=== PATIENT | male | born 1985 | race African-American/Black ===

== ENCOUNTER 2021-04-29 01:07 | Emergency (ER) | payer OTHER ==
[~2021-04-29] VITALS: Ht 175.3 cm; Wt 68.0 kg
--- NOTE | 2021-04-29 03:10 | NUR ---
PRESENTED TO THE ER REQUESTING PSYCHIATRIC RESOURCES FOR SI. PATIENT ALERT AND ORIENTED X3. AMBULATORY WITH NON LABORED BREATHING.
[2021-04-29 03:28] LABS: BILIRUBIN,URINE NEGATIVE (NEGATIVE); COLOR,URINE YELLOW (YELLOW); LEUKOCYTE ESTERASE ,URINE NEGATIVE (NEGATIVE); NITRITE, URINE NEGATIVE (NEGATIVE); PH,URINE 5.5 (5.0-8.0); PROTEIN,URINE NEGATIVE (NEGATIVE); UGLUCOSE NEGATIVE (NEGATIVE); UROBILINOGEN,URINE 0.2 EU/dL (0.2)
--- NOTE | 2021-04-29 03:30 | NUR ---
BLOOD COLLECTED AND SENT TO LAB
[2021-04-29 03:31] LABS: BASOPHILS # (AUTO) 0.1 K/uL (0.0-0.2); BASOPHILS % (AUTO) 0.8 % (0.0-2.0); EOSINOPHILS % (AUTO) 1.7 % (0.0-6.0); HEMATOCRIT 42 % (39-51); HEMOGLOBIN 14.3 g/dL (13.5-17.5); LYMPHOCYTES # (AUTO) 1.5 K/uL (0.8-4.8); MEAN CORPUSCULAR HGB CONC 34 g/dl (31.0-36.0); MEAN CORPUSCULAR VOLUME 95 fL (80-96); MONOCYTES # (AUTO) 0.4 K/uL (0.1-1.30); MONOCYTES % (AUTO) 5.4 % (2.0-12.0); NEUTROPHILS % (AUTO) 71.1 % (43.0-81.0); PLATELET COUNT (AUTO) 320 K/uL (150-450); RED BLOOD CELL COUNT(AUTO) 4.43 MIL/uL (4.5-6.0)
--- NOTE | 2021-04-29 03:35 | NUR ---
URINE COLLECTED AND SENT TO LAB
--- NOTE | 2021-04-29 03:36 | NUR ---
COVID SWAB DONE AND SENT TO LAB
[2021-04-29 03:46] LABS: ALBUMIN 4.2 g/dL (3.4-5.0); BILIRUBIN,DIRECT 0.2 mg/dL (0.0-0.2); BILIRUBIN,TOTAL 0.6 mg/dL (0.2-1.0); CALCIUM, SERUM 8.6 mg/dL (8.5-10.1); CREATININE 0.8 mg/dL (0.6-1.3); POTASSIUM 3.5 mmol/L (3.5-5.1)
[2021-04-29 06:00] VITALS: BP 126/99
--- NOTE | 2021-04-29 12:26 | NUR ---
CALL FROM TANNER,ACCEPTED AT [facility] UNDER DR DELGADO,UNIT 2,REPORT TO [phone]
--- NOTE | 2021-04-29 12:31 | NUR ---
REPORT GIVEN TO AIMEE FOR MICHELLE
--- NOTE | 2021-04-29 13:10 | NUR ---
TRANSPORTED TO [facility] IN STABLE CONDITION.
== END 2021-04-29 13:13 ==
LOC: ER 01:10
DX: R45.851 Suicidal ideations (principal); F12.90 Cannabis use, unspecified, uncomplicated; Z20.822 Contact with and (suspected) exposure to COVID-19; I10 Essential (primary) hypertension; F17.200 Nicotine dependence, unspecified, uncomplicated
CPT/HCPCS: 36415; 80048; 80076; 80143; 80307; 80320 ×2; 81003; 85025; 87426; 99285; C9803; G0480

== ENCOUNTER 2021-05-19 22:57 | Emergency (ER) | payer OTHER ==
[~2021-05-19] VITALS: Ht 175.3 cm; Wt 68.0 kg
[2021-05-19 23:18] VITALS: BP 125/94
--- NOTE | 2021-05-20 00:09 | NUR ---
COVID SWAB SENT TO LAB
--- NOTE | 2021-05-20 00:11 | NUR ---
Patient discharged to home in stable condition. Written and verbal after care instructions given. Patient verbalizes understanding of instruction.
== END 2021-05-20 00:12 | disposition home or self-care (01) ==
LOC: ER 22:57
DX: R51.9 Headache, unspecified (principal); J34.89 Other specified disorders of nose and nasal sinuses; Z20.822 Contact with and (suspected) exposure to COVID-19; I10 Essential (primary) hypertension; Z88.2 Allergy status to sulfonamides
CPT/HCPCS: 87426; 99283; C9803

== ENCOUNTER 2022-02-04 02:54 | Emergency (ER) | payer OTHER ==
[~2022-02-04] VITALS: Ht 175.3 cm; Wt 75.7 kg
--- NOTE | 2022-02-04 03:15 | NUR ---
PT 5150 HOLD PLACED BY [employer] FOR DTS; ATTEMPTED SUICED BY OD ON MEDS & ALCOHOL
--- NOTE | 2022-02-04 03:21 | NUR ---
Called Poison control. Was told to watch patient for 4 hrs Monitor vitals
--- NOTE | 2022-02-04 03:25 | NUR ---
DR. DONALD HERNANDEZ AT PT'S BEDSIDE
--- NOTE | 2022-02-04 03:27 | NUR ---
URINE AND COVID ANTIGEN SWAB COLLECTED AND SENT TO LAB
--- NOTE | 2022-02-04 03:48 | NUR ---
HOUSE FURNISHINGS SUPERVISOR AT PT'S BEDSIDE
[2022-02-04 04:11] LABS: BILIRUBIN,URINE NEGATIVE (NEGATIVE); COLOR,URINE YELLOW (YELLOW); LEUKOCYTE ESTERASE ,URINE NEGATIVE (NEGATIVE); NITRITE, URINE NEGATIVE (NEGATIVE); PROTEIN,URINE NEGATIVE (NEGATIVE); UGLUCOSE NEGATIVE (NEGATIVE); UROBILINOGEN,URINE 0.2 EU/dL (0.2)
[2022-02-04 04:13] LABS: CALCIUM, SERUM 8.4 mg/dL (8.5-10.1); POTASSIUM 3.6 mmol/L (3.5-5.1)
[2022-02-04 04:15] LABS: BASOPHILS % (AUTO) 0.3 % (0.0-2.0); HEMATOCRIT 41 % (39-51); HEMOGLOBIN 13.7 g/dL (13.5-17.5); LYMPHOCYTES # (AUTO) 1.4 K/uL (0.8-4.8); LYMPHOCYTES % (AUTO) 17.2 % (20.0-44.0); MEAN CORPUSCULAR HGB CONC 34 g/dl (31.0-36.0); MEAN CORPUSCULAR VOLUME 93 fL (80-96); MONOCYTES % (AUTO) 12.2 % (2.0-12.0); NEUTROPHILS # (AUTO) 5.1 K/uL (1.8-8.9); NEUTROPHILS % (AUTO) 64.3 % (43.0-81.0); PLATELET COUNT (AUTO) 323 K/uL (150-450); RED BLOOD CELL COUNT(AUTO) 4.36 MIL/uL (4.5-6.0)
[2022-02-04 04:19] LABS: ALBUMIN 3.4 g/dL (3.4-5.0); BILIRUBIN,DIRECT 0.1 mg/dL (0.0-0.2); BILIRUBIN,TOTAL 0.2 mg/dL (0.2-1.0); TOTAL PROTEIN, SERUM 6.7 g/dL (6.4-8.2)
--- NOTE | 2022-02-04 04:23 | NUR ---
Patient is resting comfortably in bed with eyes closed. VSS
--- NOTE | 2022-02-04 09:45 | NUR ---
able to be awakened, verbally responsive, not in acute distress. sitter by bedside.
--- NOTE | 2022-02-04 11:17 | NUR ---
PSYCH CLINICIAN NOTIFIED [phone] ART.
--- NOTE | 2022-02-04 12:00 | NUR ---
SS ASSESSMENT: SS consult requested for overdose. The pt. is a 37 year old Black male who is currently on a 5150 hold for DTS by [employer] after overdosing on "2 dozen pills of Klonopin and alcohol" per hold. SW met with pt. at bedside. The pt. is alert & oriented x 4 and makes good eye contact. Pt. has glasses. The pt. appears well groomed, with depressed mood & flat affect. The pt has fair insight & poor judgement. The pt. denies HI and denies hallucinations. However, he states that he does not have hallucinations because, " I really do see demons". SW asked pt. if he currently sees demons or hears voices and pt. stated "no". The pt. states he is having constant and ongoing suicidal ideation. Pt. refused to disclose current plan. Per pt. he has had many failed suicide attempts in the past. Pt. stated suicidal thoughts began at the age of 12. SW explored what triggered this suicide attempt. Pt. stated it is his birthday today and refused to provide additional details. Pt. stated his last sucide attempt was on March 2021 "because [facility] program I was in made me lose everything". Pt. states he has no friends of family that he considers a support system. Pt. stated he has been experiencing homelessness "for some time". SW explored any mental diagnosis he has received and pt. refused to disclose. Pt. stated he was only on Klonopin meds for his mental health. Pt. states he does not get treated by psychiatrist because he states, "they don't seem to help me". Plan: KENDRICK will fax clinicals to psychistric hospitals for placement. KENDRICK notified transition assistant, Art & CRN, Anushka. KENDRICK provided pt. with the following addiction and mental helth resources: ADDICTION RESOURCES For Drugs and Alcohol [facility] sober living Referrals For Rehabilitation once sober Address:[address] [place] [address] [facility] [address] [place] [address] Detox/residential [facility] Substance Abuse Helpline ([facility]) Outpatient, residential treatment, recovery support for youth/adults [facility] www.actionfaparkview whitley hospitalounsPowerit Solutions [facility] Teen programs for drug/alcohol education and support Oswaldo Wilson [place]. Program for adults, sliding scale provides support and education [facility] www.ViablewareIdylisation.org [place]; Detox/residential treatment programs; transition to sober living [facility] www.cri-help.org [place]; Outpatient and residential treatment programs; transition to sober living [facility] TEL: [phone] [facility] [place] [facility] Umer Goncalves; Outpatient education and supportive programs for teens and adults [facility] www.oasiswomensrsutter davis hospital.org Judi; Residential treatment and work program for females only [facility].org [place]: Outpatient/residential treatment program for teens and young adults [facility] www.[facility].org [facility] Detox, inpatient, outpatient for adults and youth [facility]. [place]; Outpatient programs and referrals to community residential programs. Alcoholics Anonymous -SFV information and meeting and scheduleswww.aa-intergroup.org Pam https://al-anoedilia.org/ [place] support groups for family of alcoholics. Marijuana Anonymous www.madistrict6.org -SFV listing of meetings Narcotics Anonymous www.na.org SOBER LIVING RESOURCES [facility] www.soberhouU.S. Nursing Corporationg.net A non-profit agency that provides resources to recovery and sober living homes throughout [facility] Men's Sober Living Homes: A Work in Progress, Janina Cheyenne [facility], [place] [facility] Replaced By [facility] Women's Sober Living Homes: [facility] x [phone] My New BeginningABBI [facility] Coed Sober Living Homes: [facility] Counseling--Outpatient [facility] [address], [place] [address] (Specializes in in-depth psychotherapy for emotional distress: anxiety, depression, interpersonal conflicts, life transitions, childhood abuse) [facility] [address] [place] [address] (Assist with solving problem marital difficulties, separation & divorce, aging parents, & grief, chronic & terminal illness) [facility] [address] [place] [address] (Deal with loss & grief, anxiety, marital difficulties) Homebound/Mental Health Services [address] [place] [address] (Provide in-home mental services to people who are incapable of leaving their homes) Organization for Needs of the Elderly Senior Service/Resource Center [address] [place] [address] [facility] [address] [place] [address] Mental Health Services [facility] [address] [place] [address] Services: Outpatient therapy for children, teens, young adults, adults, older adults, and families; Psychiatric services, medication support Psychiatric Outpatient Services [facility] Partial Hospitalization and Intensive Outpatient Program (Managed Care and [place] Only)[address] [facility] [phone] [facility] Partial Hospitalization and Outpatient Nhoxsro39218 [facility] [address] [place], [place] [phone] [facility] Center [id number] [facility]. [address] [place], [place] [phone] [facility] Partial Hospitalization and Outpatient Ynmmtgn01379 Nicole Schwarz, [phone] Crisis and Hotline Telephone Numbers 24-Hour service unless stated [place] Crisis Hotlines: [facility] Mental Health/Crisis Line........259.516.5650 Suicide Prevention Center (24 Hours).......825.886.3277 Suicide Prevention Crisis Center.......[phone] (24 Hours) Assaults Against Women Hotline.........129.327.2314 (24 Hours -- [facility]) Women and Children Crisis Correction...........210.870.4646 (24 Hours) Child Abuse Hotline............400.603.7708 [facility] (24 Hours)..........[phone] Alcoholics Anonymous (24 Hours)..........587.657.6818 Cocaine Anonymous (24 Hours)............276.325.7587 Narcotics Anonymous (24 Hours)..........[phone] Randi Jarquin [facility] [address], [place] [address]
--- NOTE | 2022-02-04 12:39 | NUR ---
KENDRICK faxed clinicals to the following [facility]: [facility] tel:[phone] FAX:[phone] [facility] fax:[phone] tel:[phone] [facility] TEL: [phone] fax: [phone] [facility] tel: ;1 fax:[phone] KENDRICK will follow up as needed.
[2022-02-04 12:51] VITALS: BP 115/74
--- NOTE | 2022-02-04 13:48 | NUR ---
[facility] TEL: [phone] Intake SW refaxed pt.'s 5150 hold and COVID-17 test result to fax: [phone]
--- NOTE | 2022-02-04 14:24 | NUR ---
Pt. has been accepted to [facility][[address] [facility] [address]] Under the care of Dr. Henley in room#1013C. SW notified Kareem Chavira that nurse to nurse report should be called after 2:45p at TEL: [phone] and set up transport.
--- NOTE | 2022-02-04 15:22 | NUR ---
[facility] CALLED FOR TRANSPORT WITH ETA OF [phone]
--- NOTE | 2022-02-04 16:40 | NUR ---
REPORT GIVEN TO RUBIO ALE[place] [address] [phone] FOR MICHELLE
--- NOTE | 2022-02-04 17:10 | NUR ---
PATIENT TAKEN BY [facility] STAFF FOR TRANFER TO [facility] IN A STABLE, CALM, COOPERATIVE BEHAVIOR.
== END 2022-02-04 17:10 ==
LOC: ER 03:00
DX: R45.851 Suicidal ideations (principal); Z59.01 Sheltered homelessness; Z20.822 Contact with and (suspected) exposure to COVID-19; I10 Essential (primary) hypertension; F20.9 Schizophrenia, unspecified; Z88.2 Allergy status to sulfonamides; Z88.8 Allergy status to other drugs, medicaments and biological substances; T42.4X1A Poisoning by benzodiazepines, accidental (unintentional), initial encounter; T51.0X1A Toxic effect of ethanol, accidental (unintentional), initial encounter; Y92.89 Other specified places as the place of occurrence of the external cause
CPT/HCPCS: 99285; 85025; 80048; 80076; 81003; 36415; 87426; 80143; 80320; 80307; J7030; C9803; G0480